=== PATIENT | female | born 1980 | race Caucasian/White ===

== ENCOUNTER 2019-10-07 22:20 | Emergency (ER) | payer MEDICAID ==
[~2019-10-07] VITALS: Ht 165.1 cm; Wt 56.7 kg
--- NOTE | 2019-10-07 22:20 | NUR ---
C/O DIFFICULTY SWALLOWING X2 DAYS. "I INJECTED HEROIN INTO MY R BUTTOCKS 2 HRS AGO". PT AAOX4, NO ANGIOEDEMA NOTED. pt to bed 7, aaox4, -sob, nad noted, vss, pending md arevalo
[2019-10-07] MEDS ORDERED: KETOROLAC TROMETHAMINE 15 MG/ML VIAL ONE (22:44)
[2019-10-07] MEDS ORDERED: KETOROLAC TROMETHAMINE INJ 30 MG/ML VIAL IV ONE (23:00)
[2019-10-07 23:06] LABS: BASOPHILS # (AUTO) 0.1 /CMM (0.0-0.2); BASOPHILS % (AUTO) 0.9 % (0.0-2.0); EOSINOPHILS % (AUTO) 3.1 % (0.0-6.0); HEMATOCRIT 43 % (33-45); HEMOGLOBIN 14.3 g/dL (11.5-14.8); LYMPHOCYTES # (AUTO) 1.8 /CMM (0.8-4.8); LYMPHOCYTES % (AUTO) 30.8 % (20.0-44.0); MEAN CORPUSCULAR HGB CONC 33 g/dl (31.0-36.0); MEAN CORPUSCULAR VOLUME 81 fL (82-100); MONOCYTES # (AUTO) 0.5 /CMM (0.1-1.30); MONOCYTES % (AUTO) 7.6 % (2.0-12.0); NEUTROPHILS # (AUTO) 3.4 /CMM (1.8-8.9); NEUTROPHILS % (AUTO) 57.6 % (43.0-81.0); PLATELET COUNT (AUTO) 348 /CMM (150-450); RED BLOOD CELL COUNT(AUTO) 5.29 MIL/uL (4.0-5.2); WHITE BLOOD COUNT (AUTO) 5.9 K/uL (4.3-11.0)
[2019-10-07 23:15] LABS: CREATININE 0.8 mg/dL (0.6-1.3); MAGNESIUM 1.7 mg/dL (1.8-2.4); POTASSIUM 4.8 mmol/L (3.5-5.1)
--- NOTE | 2019-10-07 23:20 | NUR ---
Patient is resting comfortably in bed with eyes closed. Easily aroused. VSS
--- NOTE | 2019-10-07 23:27 | NUR ---
PER DR ETIENNE, OK TO GIVE TORADOL TO IM
[2019-10-07 23:37] LABS: THYROID STIMULATING HORMONE 6.095 uIU/mL (0.358-3.74)
--- NOTE | 2019-10-08 01:17 | NUR ---
PT ASLEEP, EASILY AROUSABLE, NO ACUTE DISTRESS NOTED, RESP EVEN AND UNLABORED. CALL LIGHT WIHTIN REACH WILL CONTINUE TO MONITOR PT CLOSELY.
--- NOTE | 2019-10-08 02:35 | NUR ---
Patient given written and verbal discharge instructions. Patient verbalizes understanding of instructions. Patient is ambulatory with steady gait. Refuses offer of snf placement. Patient given list of available shelters in surrounding area.Pt ambulatory with a steady gait
[2019-10-08 02:47] VITALS: BP 114/79
== END 2019-10-08 02:48 | disposition home or self-care (01) ==
LOC: ER 22:24
DX: J02.9 Acute pharyngitis, unspecified (principal); J45.909 Unspecified asthma, uncomplicated; F11.10 Opioid abuse, uncomplicated; F15.10 Other stimulant abuse, uncomplicated; F17.200 Nicotine dependence, unspecified, uncomplicated; Z86.19 Personal history of other infectious and parasitic diseases; Z88.0 Allergy status to penicillin
CPT/HCPCS: 36415; 70450; 70490; 80048; 83735; 84439; 84443; 85025; 96374; 99284; J1885

== ENCOUNTER 2019-10-31 13:37 | Emergency (ER) | payer MEDICAID ==
[~2019-10-31] VITALS: Ht 165.1 cm; Wt 58.5 kg
--- NOTE | 2019-10-31 13:50 | NUR ---
DEGRASSE ARTIST'S MANAGER AT BEDSIDE.
--- NOTE | 2019-10-31 14:00 | NUR ---
BIB [facility] 79, C/O BEING SICK AFTER [employer] TOLD THEM TO LEAVE THEIR ENCAMPMENT IN THE [facility]. PATIENT RESPONSIVE TO STIMULI. APPEARS TO BE SLEEPY AND DISHEVELED.
[2019-10-31 14:31] LABS: BASOPHILS % (AUTO) 0.7 % (0.0-2.0); HEMATOCRIT 39 % (33-45); HEMOGLOBIN 13.1 g/dL (11.5-14.8); LYMPHOCYTES # (AUTO) 1.1 /CMM (0.8-4.8); LYMPHOCYTES % (AUTO) 19.1 % (20.0-44.0); MEAN CORPUSCULAR HGB CONC 34 g/dl (31.0-36.0); MEAN CORPUSCULAR VOLUME 81 fL (82-100); MONOCYTES # (AUTO) 0.3 /CMM (0.1-1.30); MONOCYTES % (AUTO) 5.5 % (2.0-12.0); NEUTROPHILS % (AUTO) 72.7 % (43.0-81.0); PLATELET COUNT (AUTO) 206 /CMM (150-450); RED BLOOD CELL COUNT(AUTO) 4.79 MIL/uL (4.0-5.2); WHITE BLOOD COUNT (AUTO) 5.5 K/uL (4.3-11.0)
[2019-10-31 14:45] LABS: CALCIUM, SERUM 9.3 mg/dL (8.5-10.1); CARBON DIOXIDE 33 mmol/L (21-32); CHLORIDE 103 mmol/L (98-107); CREATININE 0.7 mg/dL (0.6-1.3); GLUCOSE 133 mg/dL (74-106); POTASSIUM 3.2 mmol/L (3.5-5.1); SODIUM SERUM 142 mmol/L (136-145); UREA NITROGEN, BLOOD 11 mg/dL (7-18)
[2019-10-31 14:50] LABS: ALANINE AMINOTRANSFERASE 16 U/L (12-78); ALBUMIN 3.2 g/dL (3.4-5.0); ALCOHOL, BLOOD < 3 mg/dL (0-0); ALKALINE PHOSPHATASE 84 U/L (46-116); ASPARTATE AMINOTRANSFERASE 26 U/L (15-37); BILIRUBIN,DIRECT 0.1 mg/dL (0.0-0.2); BILIRUBIN,TOTAL 0.4 mg/dL (0.2-1.0); SALICYLATE 1.4 mg/dL (2.8-20.0); TOTAL PROTEIN, SERUM 7.9 g/dL (6.4-8.2)
[2019-10-31 14:51] LABS: ACETAMINOPHEN 0 ug/ml (10-30)
[2019-10-31 15:19] LABS: BILIRUBIN,URINE MODERATE (NEGATIVE); BLOOD, URINE Moderate Ery/uL (NEGATIVE); COLOR,URINE Yellow (YELLOW); KETONES,URINE Trace (NEGATIVE); LEUKOCYTE ESTERASE ,URINE Negative (NEGATIVE); NITRITE, URINE Negative (NEGATIVE); PH,URINE 5.5 (5.0-8.0); PROTEIN,URINE Negative (NEGATIVE); UGLUCOSE Negative (NEGATIVE)
[2019-10-31 15:33] LABS: APPEARANCE,URINE HAZY (CLEAR); BACTERIA,URINE Few /HPF (None Seen); RBC,URINE TOO NUMEROUS TO COUN /HPF (0-2); SQUAMOUS EPITHELIAL CELL,UR Few /HPF (None Seen); WBC,URINE 0-2 /HPF (0-3)
--- NOTE | 2019-10-31 16:39 | NUR ---
patient in bed asleep, arousable to stimuli. No distress noted.
--- NOTE | 2019-10-31 18:39 | NUR ---
Patient is resting comfortably in bed with eyes closed. Easily aroused.
--- NOTE | 2019-10-31 20:30 | NUR ---
PATIENT STILL SLEEPING, AROUSABLE. NO DISTRESS NOTED,VSS
--- NOTE | 2019-10-31 22:30 | NUR ---
PATIENT IN NO DISTRESS, ASLEEP BUT AROUSABLE TO STIMULI.
--- NOTE | 2019-10-31 23:21 | NUR ---
TOOK OVER PT CARE. Patient is resting comfortably in bed with eyes closed. Easily aroused. VSS.
--- NOTE | 2019-11-01 07:30 | NUR ---
REPORT RECEIVED FROM VIVEK PIERRE FOR HAYDER
--- NOTE | 2019-11-01 08:14 | NUR ---
BREAKFAST TRAY PROVIDED, TOLERATING PO WELL
--- NOTE | 2019-11-01 08:15 | NUR ---
DANIAL BOWMAN AT BEDSIDE
--- NOTE | 2019-11-01 08:30 | NUR ---
Social service consult requested by for homelessness. Per MD notes, pt is a 38-year-old homeless female who presented to the emergency department yesterday evening with complaints of feeling "sick". She has a significant history for hepatitis B, methamphetamine and heroin abuse. She also states that she has had a stroke in the past but is unable to communicate whether or not she has any deficit. REEL CUTTER met with the pt bedside. REEL CUTTER introduced self, explained the role of SW and purpose of the visit. Pt is alert and oriented x 4. Pt appears disheveled and unkempt. Pt mumbles when speaking. Pt reports to be homeless on and off for the past 10 years. Pt is a poor historian. Pt currently resides with her boyfriend at an encampment located at [facility] in [place]. Pt mood is congruent. Pt states she has a wheelchair but is able to ambulate with a walker. Pt's wheelchair is at the encampment. Pt receives food stamps and GR. Per pt, she has a psychiatric diagnosis of Bipolar Disorder and Depression.Pt currently denies SI/HI. Pt is non complaint with her medications. Pt reports to using heroin. Pt last used heroin 2 days ago. Pt denies alcohol use. Pt states she smokes 10 cigarettes per day. REEL CUTTER provide active listening and supportive counseling. REEL CUTTER informed pt about the [facility] and provided pt with homeless packet that includes [facility] [id number] [facility] program list, [facility], [facility] ; [facility] Homeless Resource Directory which includes food stamps, transitional housing, showers and hot meals etc; Mental Health clinics such as [facility] ; [facility] ; Health clinics;[facility] and Alcohol treatment centers such as [facility], ; [facility] Substance Abuse Hotline and [facility] . Homeless Patient waiver form was placed in pt's chart for pt to sign upon discharge. REEL CUTTER updated pt's RN Jovanny and informed her that pt will require a walker and TAP card upon discharge.
--- NOTE | 2019-11-01 11:21 | NUR ---
Patient given written and verbal discharge instructions. Patient verbalizes understanding of instructions. Patient is ambulatory, using walker with steady gait. Refuses offer of nursing home placement. Patient given list of available shelters in surrounding area. All belongings given to patient, name band removed. In proper clothing upon discharge. Assisted to waiting room while awaiting for tapcard.
[2019-11-01 11:26] VITALS: BP 116/69
== END 2019-11-01 11:27 | disposition home or self-care (01) ==
LOC: ER 13:40
DX: J06.9 Acute upper respiratory infection, unspecified (principal); F19.10 Other psychoactive substance abuse, uncomplicated; R41.82 Altered mental status, unspecified; F15.10 Other stimulant abuse, uncomplicated; F11.10 Opioid abuse, uncomplicated; J45.909 Unspecified asthma, uncomplicated; Z59.0 Homelessness; Z86.19 Personal history of other infectious and parasitic diseases; Z88.0 Allergy status to penicillin
CPT/HCPCS: 36415; 71045; 80048; 80076; 80305; 80307; 80329; 81001; 85025; 87804 ×2; 99285; G0480; 81000-TC

== ENCOUNTER 2020-06-06 15:10 | Emergency (ER) | payer SELFPAY ==
[~2020-06-06] VITALS: Ht 160 cm; Wt 59.0 kg
[2020-06-06 15:27] VITALS: BP 101/71
--- NOTE | 2020-06-06 16:59 | NUR ---
PAGED DR ROSALIO CASE FOR A DR TO SPEAKING TO LORENE ORTEGA NOW
--- NOTE | 2020-06-06 18:19 | NUR ---
VERBALIZED UNDERSTANDING OF ACI AND RX,DENIES SHE IS HOMELESS
== END 2020-06-06 18:25 | disposition home or self-care (01) ==
LOC: ER 15:17
DX: S82.51XA Displaced fracture of medial malleolus of right tibia, initial encounter for closed fracture (principal); S82.831A Other fracture of upper and lower end of right fibula, initial encounter for closed fracture; J45.909 Unspecified asthma, uncomplicated; Z86.19 Personal history of other infectious and parasitic diseases; Z88.0 Allergy status to penicillin; W18.30XA Fall on same level, unspecified, initial encounter; Y93.89 Activity, other specified; Y92.89 Other specified places as the place of occurrence of the external cause; Y99.8 Other external cause status
CPT/HCPCS: 73590-TC; 73610-TC

== ENCOUNTER 2022-12-05 23:29 | Emergency (ER) | payer MEDICAID ==
[~2022-12-05] VITALS: Ht 165.1 cm; Wt 68.0 kg
[2022-12-06 01:37] VITALS: BP 135/45
[2022-12-06] MEDS ORDERED: CLINDAMYCIN HCL 150 MG CAPSULE ONE (01:57)
[2022-12-06] MEDS ORDERED: CLINDAMYCIN HCL 150 MG CAPSULE PO ONE (02:00)
[2022-12-06] MEDS ORDERED: CLIN300C12 PO (02:18)
[2022-12-06] MEDS ORDERED: ACETAMINOPHEN ES 500 MG TABLET PO ONE (02:30)
[2022-12-06] MEDS ORDERED: ACETAMINOPHEN ES 500 MG TABLET ONE (02:33)
--- NOTE | 2022-12-06 02:50 | NUR ---
CALLED ARIE FRIEND AT [phone] TO CHIEF DIVERSITY OFFICER THE PATIENT.
--- NOTE | 2022-12-06 03:38 | NUR ---
Patient discharged to home in stable condition. Written and verbal after care instructions given. Patient verbalizes understanding of instruction.
== END 2022-12-06 03:38 | disposition home or self-care (01) ==
LOC: ER 23:31
DX: L03.115 Cellulitis of right lower limb (principal); J45.909 Unspecified asthma, uncomplicated; F17.200 Nicotine dependence, unspecified, uncomplicated; Z88.0 Allergy status to penicillin

== ENCOUNTER 2022-12-06 20:19 | Emergency (ER) | payer MEDICAID ==
[~2022-12-06] VITALS: Ht 165.1 cm; Wt 80.3 kg
[~2022-12-06 20:19] MED LIST: CLIN300C12 PO
--- NOTE | 2022-12-06 20:29 | NUR ---
BIBRA60 FROM FRIENDS "HOUSE" C/O WEAKNESS & DIARRHEA. UPSCALE SECURITY OFFICER FENTANYL USE PT SEEN YESTERDAY FOR CELLULITIS. PLACED ON BED, NOT RESPONDING TO VERBAL-PAINFUL STIMULI, RESTLESS, SATURATING AT 85-90% WITH 15LIT O2 VIA NRM. MD AT BEDSIDE FOR EVAL.
--- NOTE | 2022-12-06 20:30 | NUR ---
UNABLE TO ESTABLISH IV SITE, INTRANASAL NARCARN 4MG VERBAL ORDER NOTED AND CARRIED OUT
[2022-12-06] MEDS ORDERED: NALOXONE PREFILLED SYRINGE 2 MG/2 ML SYRINGE ONE (20:52)
[2022-12-06] MEDS ORDERED: IV NS 0.9% 1,000 ML BAG IV ONE (21:00)
[2022-12-06] MEDS ORDERED: NALOXONE HCL 4 MG SPRAY NS ONE (21:00)
[2022-12-06] MEDS ORDERED: NALOXONE PREFILLED SYRINGE 2 MG/2 ML SYRINGE IV ONE (21:00)
[2022-12-06] MEDS ORDERED: KETAMINE HCL (500MG/10ML) 50 MG/ML VIAL ONE (21:08)
[2022-12-06] MEDS ORDERED: SUCCINYLCHOLINE CHLORIDE 20 MG/ML VIAL ONE (21:12)
--- NOTE | 2022-12-06 21:12 | NUR ---
RT AT PT'S BEDSIDE
--- NOTE | 2022-12-06 21:14 | NUR ---
SAW SETTER AT PT'S BEDSIDE
--- NOTE | 2022-12-06 21:14 | NUR ---
CHUTE TENDER AT PT'S BEDSIDE
--- NOTE | 2022-12-06 21:25 | NUR ---
EMT AT PT'S BEDSIDE FOR EKG
--- NOTE | 2022-12-06 21:32 | NUR ---
SOFT TOP INSTALLER AT PT'S BEDSIDE
--- NOTE | 2022-12-06 21:32 | NUR ---
F/C 16 FR INSERTED AND URINE SENT TO LAB
--- NOTE | 2022-12-06 21:35 | NUR ---
PATIENT INTUBATED BY MD WITH ETOMIDATE 20MG IV AND ROCURONIUM 80MG IV. ATTACHED TO VENTILATOR WITH SETTING FIO2- 100, VT- 500, RATE- 18, PEEP- 5 SATURATING 98%.
--- NOTE | 2022-12-06 21:40 | NUR ---
RT NOTE LATE ENTRY Pt rec'd on NRB mask @ 15LPM. Pt showed increased WOB breathing, Restlessness, and low SPO2. Pt orally intubated via ETT SZ #7.5, secured at 25CM at the lipline. Color changed noted via CO2 detector. Clear bilateral bs heard per md. Pt placed on [facility] vent on AC mode settings per MD orders. Alarms are set and audible. Vent plugged into red outlet. Ambu bag bedside. waiting on chest xray results. ABG to be taken within 1HR. Addendum: 12/06/22 at 2213 by VENANCIO CASTILLO RT Amended: Links added.
[2022-12-06] MEDS ORDERED: PROPOFOL 100 ML ONE (22:01)
[2022-12-06] MEDS ORDERED: NOREPINEPHRINE 4 MG/4 ML AMPUL IV ONE (22:22)
[2022-12-06] MEDS ORDERED: PROPOFOL 100 ML IV PRN ×2 (22:30→23:30)
[2022-12-06] MEDS ORDERED: AZTREONAM 2 G in IV NS 0.9% 100 ML IV ONE (22:30)
[2022-12-06] MEDS ORDERED: NOREPINEPHRINE 8 MG in IV NS 0.9% 250 ML IV ONE (22:30)
[2022-12-06] MEDS ORDERED: AZTREONAM 1 G VIAL ONE (22:49)
[2022-12-06 22:54] LABS: BILIRUBIN,URINE NEGATIVE (NEGATIVE); COLOR,URINE DARK YELLOW (YELLOW); LEUKOCYTE ESTERASE ,URINE NEGATIVE (NEGATIVE); NITRITE, URINE NEGATIVE (NEGATIVE); PROTEIN,URINE TRACE mg/dl (NEGATIVE); UGLUCOSE TRACE mg/dL (NEGATIVE); UROBILINOGEN,URINE 0.2 EU/dL (0.2)
[2022-12-06 22:59] LABS: BACTERIA,URINE Few /HPF (None Seen); RBC,URINE 0-2 /HPF (0-2); SQUAMOUS EPITHELIAL CELL,UR Many /HPF (None Seen); WBC,URINE 0-2 /HPF (0-3)
[2022-12-06] MEDS ORDERED: PRECEDEX 400 MCG/100 ML BOTTLE 100 ML IV PRN (23:00)
[2022-12-06 23:01] LABS: BASOPHILS # (AUTO) 0.1 K/uL (0.0-0.2); BASOPHILS % (AUTO) 0.2 % (0.0-2.0); EOSINOPHILS % (AUTO) 0.7 % (0.0-6.0); HEMATOCRIT 58 % (33-45); HEMOGLOBIN 17.9 g/dL (11.5-14.8); LYMPHOCYTES # (AUTO) 9.5 K/uL (0.8-4.8); LYMPHOCYTES % (AUTO) 15.8 % (20.0-44.0); MEAN CORPUSCULAR HGB CONC 31 g/dl (31.0-36.0); MEAN CORPUSCULAR VOLUME 88 fL (82-100); MONOCYTES # (AUTO) 3.4 K/uL (0.1-1.30); MONOCYTES % (AUTO) 5.6 % (2.0-12.0); NEUTROPHILS # (AUTO) 46.7 K/uL (1.8-8.9); NEUTROPHILS % (AUTO) 77.7 % (43.0-81.0); PLATELET COUNT (AUTO) 137 K/uL (150-450); RED BLOOD CELL COUNT(AUTO) 6.51 MIL/uL (4.0-5.2)
[2022-12-06 23:09] LABS: SERUM AMMONIA 215 umol/L (11-32); WHITE BLOOD COUNT (AUTO) 60.2 K/uL (4.3-11.0)
[2022-12-06 23:16] LABS: CALCIUM, SERUM 8.2 mg/dL (8.5-10.1); CARBON DIOXIDE 14 mmol/L (21-32); CHLORIDE 83 mmol/L (98-107); GLUCOSE 282 mg/dL (74-106); POTASSIUM 4.2 mmol/L (3.5-5.1); SODIUM SERUM 121 mmol/L (136-145); UREA NITROGEN, BLOOD 54 mg/dL (7-18)
[2022-12-06 23:17] LABS: THYROID STIMULATING HORMONE 17.673 uIU/mL (0.358-3.74)
[2022-12-06] MEDS ORDERED: VANCOMYCIN 1 GM in IV D5W 250 ML IV ONE (23:19)
[2022-12-06 23:20] LABS: ABG BASE EXCESS -27.8 mmol/L; ABG PH 6.836 (7.350-7.450); ABG PO2 658.5 mmHg (75.0-100.0); COHb 0.2 % (0.5-1.5); MetHb 0.8 % (0.0-1.5); O2Hb 98.7 % (94.0-97.0); PEEP,BG 5 cm H2O; SITE, ABG Right Radial; VT, ABG 500 mL
--- NOTE | 2022-12-06 23:20 | NUR ---
PATIENT LEFT FOR CT UNDER ACLS W/ RT AND ARN
[2022-12-06 23:21] LABS: ALANINE AMINOTRANSFERASE 62 U/L (12-78); ALKALINE PHOSPHATASE 219 U/L (46-116); ASPARTATE AMINOTRANSFERASE 162 U/L (15-37); BILIRUBIN,DIRECT 0.3 mg/dL (0.0-0.2); BILIRUBIN,TOTAL 0.7 mg/dL (0.2-1.0); TOTAL PROTEIN, SERUM 4.3 g/dL (6.4-8.2)
[2022-12-06 23:22] LABS: ALBUMIN 1.3 g/dL (3.4-5.0); ALCOHOL, BLOOD < 3 mg/dL (0-0)
[2022-12-06] MEDS ORDERED: IV NS 0.9% 1,000 ML IV ONE (23:30)
[2022-12-06] MEDS ORDERED: SODIUM BICARBONATE SYR 50 MEQ/50 ML DISP.SYRIN IV ONE (23:30)
[2022-12-06] MEDS ORDERED: SODIUM BICARBONATE SYR 100 MEQ in IV NS 0.9% 1,000 ML IV PRN (23:30)
--- NOTE | 2022-12-06 23:35 | NUR ---
RT NOTE LATE ENTRY ABG TAKEN AND CRITICAL RESULTS REPORTED TO MD. VENT CHANGES MADE. RR INCREASED TO 20. ETT RETRACTED BY 2CM PER MD ORDERS. ETT SECURED AT 23CM AT THE LIPLINE Addendum: 12/07/22 at 0415 by VENANCIO CASTILLO RT Amended: Links added.
--- NOTE | 2022-12-06 23:35 | NUR ---
LACTIC ACID 16.2
--- NOTE | 2022-12-06 23:36 | NUR ---
BACK FROM CT
[2022-12-06] MEDS ORDERED: SODIUM BICARBONATE SYR 50 MEQ/50 ML DISP.SYRIN ONE (23:42)
--- NOTE | 2022-12-06 23:50 | NUR ---
REPORT GIVEN TO IRINEO PIERRE ICU ROOM 259 FOR HAYDER
[2022-12-07] VITALS (12 sets, daily range): BP systolic 0–141; BP diastolic 0–74
[2022-12-07] MEDS ORDERED: VANCOMYCIN 1 GM VIAL ONE (00:16)
[2022-12-07] MEDS ORDERED: MAGNESIUM HYDROXIDE 30 ML UDC PO PRN (00:30)
[2022-12-07] MEDS ORDERED: PROPOFOL 100 ML IV PRN ×2 (00:30)
[2022-12-07] MEDS ORDERED: IV NS 0.9% 1,000 ML IV PRN (00:30)
[2022-12-07] MEDS ORDERED: NOREPINEPHRINE 8 MG in IV NS 0.9% 242 ML IV PRN ×3 (00:30)
[2022-12-07] MEDS ORDERED: SODIUM BICARBONATE SYR 100 MEQ in IV NS 0.9% 1,000 ML IV PRN (00:30)
[2022-12-07] MEDS ORDERED: MAG HYDROX/AL HYDROX/SIMETH 30 ML UDC PO PRN (00:30)
[2022-12-07] MEDS ORDERED: Z GUARD REMEDY 4 OZ OINT TP PRN (00:30)
[2022-12-07] MEDS ORDERED: ONDANSETRON HCL/PF 4 MG/2 ML VIAL IVP PRN (00:30)
[2022-12-07] MEDS ORDERED: LACTULOSE 10 G/15 ML UDC (PYXIS) PO PRN (00:30)
[2022-12-07] MEDS ORDERED: ZOLPIDEM TARTRATE 5 MG TABLET PO PRN (00:30)
[2022-12-07] MEDS ORDERED: ACETAMINOPHEN 325 MG TABLET PO PRN (00:30)
--- NOTE | 2022-12-07 00:46 | NUR ---
PROCAL 19.83
--- NOTE | 2022-12-07 00:48 | NUR ---
CANE WEIGHER HELPER AT PT'S BEDSIDE FOR BLOOD DRAW.
--- NOTE | 2022-12-07 00:55 | NUR ---
PT TRANSFERRED TO ICU 259 VIA ACLS PROTOCOL WITH RT & RN. ALL BELONGINGS WITH PT.
[2022-12-07] MEDS ORDERED: LEVOFLOXACIN 750 MG /D5W 150ML 750 MG in PREMIX 1 EA IV ONE (01:00)
[2022-12-07] MEDS ORDERED: NOREPINEPHRINE 4 MG/4 ML AMPUL IV ONE ×3 (01:16→06:14)
[2022-12-07 01:38] LABS: CREATINE KINASE, TOTAL 3658 U/L (26-192)
[2022-12-07 01:44] LABS: BAND % (MANUAL) 2 % (0.0-5.0); BASOPHILS % (MANUAL) 0 % (0.0-2.0); EOSINOPHILS % (MANUAL) 0 % (0-4); LYMPHOCYTES % (MANUAL) 14 % (16-48); MONOCYTES % (MANUAL) 5 % (0-11.0); NEUTROPHILS % (MANUAL) 79 (42-76)
[2022-12-07] MEDS ORDERED: LEVOFLOXACIN 750 MG /D5W 150ML 150 ML IV ONE (01:54)
[2022-12-07] MEDS ORDERED: PHENYLEPHRINE 10 MG/ML VIAL ONE (02:23)
[2022-12-07] MEDS ORDERED: PHENYLEPHRINE 100 MG in IV NS 0.9% 240 ML IV PRN (02:30)
--- NOTE | 2022-12-07 02:30 | NUR ---
RT NOTE LATE ENTRY VENT CHANGES MADE PER MD ORDERS. PEEP DECREASED TO 0 Addendum: 12/07/22 at 0415 by VENANCIO CASTILLO RT Amended: Links added.
--- NOTE | 2022-12-07 02:47 | NUR ---
KETTLE ROOM HELPER. ADMISSION. RECEIVED THE PT FROM ER VIA [facility]. PT ORALLY INTUBATED, ETT 7.5, AC 20 .LIP 25,TV 500, FIO2 100%, PEEP 5. SAT 95%. NO ACUTE DISTRESS NOTED. MARZIPAN MOLDER SHOWING S TACH. ALL EXTREMITY TOUCH COLD. OSITO LOWER EXTREMITY SWELLON. PUPIL DILATED AND FIXED. NO GAGS OR COUGH REFLEX. NGT INTACT. IV RT IJ TLC. LEVOPHED AND HUSEYIN STARTED, BICARB DRIP ON. PT IS VERY UNSTABLE.FC PATENT. NO URINE. WILL CONTINUE TO MONITOR VITALS
[2022-12-07] MEDS: NOREPINEPHRINE 32 MG in IV NS 0.9% 218 ML IV PRN ×2 (02:56→06:36)
--- NOTE | 2022-12-07 05:00 | NUR ---
MEDICAL SCIENTIFIC LIAISON. PT BLOOD PRESSURE IS VERY LOW. MAXED OUT HUSEYIN. LEVO. NOTIFIED FOREIGN EXCHANGE POSITION CLERK PHOTO PRINTER VASO ORDERED.
[2022-12-07] MEDS ORDERED: METRONIDAZOLE 500MG/ NS 100ML 500 MG in PREMIX 1 EA IV SCH (06:00)
[2022-12-07] MEDS ORDERED: METRONIDAZOLE 500MG/ NS 100ML 100 ML IV ONE (06:00)
--- NOTE | 2022-12-07 06:44 | NUR ---
CUSTOMER SERVICE REP. PT IS VERY UNSTABLE. PUPIL DILATED AND FIXED. NO GAG AND COUGH REFLEX. NOTIFIED EARLY MORNING BABYSITTER CARTER. VASO ORDERED. LEVOPHED 1 MCG/KG/MIN, UHSEYIN 3 MCG/KG/MIN, BICARB DRIP 100 ML/H. FC PATENT. PT IS ANURIC. WILL MONITOR VITALS.
[2022-12-07] MEDS ORDERED: VASOPRESSIN INJ 40 UNIT in IV NS 0.9% 38 ML IV PRN (07:00)
[2022-12-07 07:47] LABS: BASOPHILS % (AUTO) 0.5 % (0.0-2.0); EOSINOPHILS % (AUTO) 0.7 % (0.0-6.0); HEMATOCRIT 57 % (33-45); HEMOGLOBIN 17.8 g/dL (11.5-14.8); LYMPHOCYTES % (AUTO) 14.1 % (20.0-44.0); MEAN CORPUSCULAR HGB CONC 31 g/dl (31.0-36.0); MEAN CORPUSCULAR VOLUME 88 fL (82-100); MONOCYTES % (AUTO) 5.6 % (2.0-12.0); NEUTROPHILS % (AUTO) 79.1 % (43.0-81.0); PLATELET COUNT (AUTO) 70 K/uL (150-450); RED BLOOD CELL COUNT(AUTO) 6.46 MIL/uL (4.0-5.2)
[2022-12-07 07:48] LABS: BASOPHILS # (AUTO) 0.3 K/uL (0.0-0.2); LYMPHOCYTES # (AUTO) 9.1 K/uL (0.8-4.8); MONOCYTES # (AUTO) 3.6 K/uL (0.1-1.30); NEUTROPHILS # (AUTO) 51.1 K/uL (1.8-8.9)
[2022-12-07] MEDS ORDERED: HYDROCORTISONE SOD SUCCINATE 100 MG/2 ML VIAL IV SCH (08:00)
[2022-12-07 08:10] LABS: BILIRUBIN,TOTAL 0.9 mg/dL (0.2-1.0); CALCIUM, SERUM 6.5 mg/dL (8.5-10.1); CREATININE 4.2 mg/dL (0.6-1.3); MAGNESIUM 3.7 mg/dL (1.8-2.4); POTASSIUM 5.5 mmol/L (3.5-5.1); TOTAL PROTEIN, SERUM 2.6 g/dL (6.4-8.2)
[2022-12-07 08:16] LABS: THYROID STIMULATING HORMONE 15.564 uIU/mL (0.358-3.74)
[2022-12-07] MEDS ORDERED: ETOMIDATE 2 MG/ML VIAL IV ONE (08:38)
[2022-12-07] MEDS ORDERED: ROCURONIUM BROMIDE 50 MG/5 ML IV ONE (08:39)
[2022-12-07] MEDS ORDERED: SUCCINYLCHOLINE CHLORIDE 20 MG/ML VIAL IV ONE (08:39)
[2022-12-07 08:45] LABS: ALBUMIN 0.6 g/dL (3.4-5.0)
[2022-12-07 08:56] LABS: WHITE BLOOD COUNT (AUTO) 64.7 K/uL (4.3-11.0)
[2022-12-07] MEDS ORDERED: HEPARIN SODIUM, PORCINE 5000 UNITS/1 ML VIAL SQ SCH (09:00)
[2022-12-07] MEDS ORDERED: PANTOPRAZOLE 40 MG VIAL IV SCH (09:00)
--- NOTE | 2022-12-07 10:18 | NUR ---
WOUND CARE CONSULT: PT HAVING PROCEDURE AT THIS TIME. PT IS INTUBATED. WILL SEE PT FOR SKIN ASSESSMENT PT CONDITION PERMITS. DISCUSSED SKIN PROTECTION WITH NURSING STAFF. IN AGREEMENT WITH PLAN OF CARE.
--- NOTE | 2022-12-07 12:00 | NUR ---
RT PATIENT [facility]UB[facility] CRIT[facility]. CODE BLUE CALLED. DOCTOR ON SITE CALLED TIME OF .
[2022-12-07] MEDS ORDERED: SODIUM POLYSTYRENE SULF. PWD 15 GM UDC PO ONE (13:30)
--- NOTE | 2022-12-07 13:36 | NUR ---
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 Spoke to Grinder Set Up Operator Thread: Tyree Rangel Grinder Set Up Operator Thread Grinder Set Up Operator Thread will make arrangement for body pick and shovel worker Body transported to [facility] Record of completed, placed in chart, sent to nursing office Simran Rasheed - Nursing Overlocker aware
[2022-12-07 17:35] LABS: BAND % (MANUAL) 2 % (0.0-5.0); LYMPHOCYTES % (MANUAL) 9 % (16-48); MONOCYTES % (MANUAL) 2 % (0-11.0); NEUTROPHILS % (MANUAL) 87 (42-76)
[2022-12-08] MEDS ORDERED: VANCOMYCIN 1 GM in IV D5W 250ml IV SCH (11:00)
[2022-12-09] MEDS ORDERED: LEVOFLOXACIN 500 MG /D5W 100ML 500 MG in PREMIX 1 EA IV SCH (09:00)
== END 2022-12-07 01:02 ==
LOC: ER 20:21 → ICU 23:14 → UNDOADMIN 23:14 → UNDODISIN 12-07 14:41
DX: J96.01 Acute respiratory failure with hypoxia (principal); R41.82 Altered mental status, unspecified; Z20.822 Contact with and (suspected) exposure to COVID-19
CPT/HCPCS: 99291; 96365; 96367 ×2; 31500; 96375 ×2; 93005; 82803; 87040 ×5; 71045 ×2; 72125; 70450; 82140 ×2; 84145 ×2; 85025 ×2; 80048; 83605 ×2; 80076; 85007 ×2; 81001; 36415 ×2; 84443 ×2; 84484 ×3; 85730; 83880; 36600 ×2; 87426; 80320; 80307; 36620; 96366; 96368; 76700; 82550 ×2; 83540; 83735; 84100; 84478; 84439; 80053; 80061; 87081; 94799 ×2; 31720; 82533; 84481; 82553; J3490 ×7; J0330 ×2; J7030 ×3; A4223 ×6; C9803; J2370 ×2; J3370; J7050 ×2; J7040; C9113; J1956; 87086-TC; 94002-TC; A4216; G0378; G0480; J2310; J7042; J7060